=== PATIENT | male | born 1980 | race Caucasian/White ===

== ENCOUNTER 2024-02-20 05:29 | Emergency (ER) | payer OTHER, SELFPAY ==
[2024-02-20] VITALS (10 sets, daily range): BP systolic 150–157; BP diastolic 87–102; PULSE 54–61; RESP 16–24; TEMP 36.1; O2SAT 93–100; BMI 39.4
--- NOTE | 2024-02-20 06:06 | ED_ITS ---
HPI - Abdominal Pain General Time Seen by Provider: 06:06 <Veronica Tobin MD - Last Filed: 02/20/24 07:21> Date Seen: 02/20/24 <Veronica Tobin MD - Last Filed: 02/20/24 07:21> Chief Complaint: Abdominal Pain <Veronica Tobin MD - Last Filed: 02/20/24 07:21> Stated Complaint: Abdominal pain, sweating, nausea <Veronica Tobin MD - Last Filed: 02/20/24 07:21> Time Seen by Provider: 02/20/24 06:06 <Veronica Tobin MD - Last Filed: 02/20/24 07:21> Source: patient and RN notes reviewed <Veronica Tobin MD - Last Filed: 02/20/24 07:21> Mode of arrival: ambulatory <Veronica Tobin MD - Last Filed: 02/20/24 07:21> Limitations: no limitations <Veronica Tobin MD - Last Filed: 02/20/24 07:21> History of Present Illness HPI narrative: Dario is a very pleasant 43-year-old gentleman previously healthy who comes to the emergency room for evaluation regarding abdominal pain. Patient noted to have the onset of abdominal pain left lower quadrant at 0300 hours which awoke him from sleep. He did not have any neck symptoms last night when he went to bed. This is associated with some soft stools but no blood or diarrhea. He has not had fever but he has the had significant diaphoresis. He has not experienced this in the past. He has no painful urination. He is nauseated but has not had any vomiting. No position changes improve his discomfort. He has not taken anything for pain at this point. <Veronica Tobin MD - Last Filed: 02/20/24 07:21> Related Data Home Medications: Home Medications ?Medication ?Instructions ?Recorded ?Confirmed albuterol 90 mcg/actuation aerosol mcg inhalation 02/20/24 inhaler brimonidine ophthalmic (eye) 02/20/24 bupropion HCl 150 mg tablet,12 hr 150 mg PO DAILY 02/20/24 02/20/24 sustained-release (Wellbutrin SR) dorzolamide ophthalmic (eye) 02/20/24 dorzolamide-timolol ophthalmic (eye) 02/20/24 fluoxetine 20 mg capsule 20 mg PO DAILY 02/20/24 02/20/24 metformin 500 mg tablet,extended 500 mg PO DAILY 02/20/24 02/20/24 release 24 hr metoprolol succinate 25 mg 25 mg PO DAILY 02/20/24 02/20/24 tablet,extended release 24 hr (Toprol XL) Previous Rx's ?Medication ?Instructions ?Recorded oxycodone-acetaminophen 5 mg-325 1 tab PO Q4-6H PRN pain #10 tabs 02/20/24 mg tablet (Percocet) tamsulosin 0.4 mg capsule (Flomax) 0.4 mg PO DAILY #10 caps 02/20/24 <Veronica Tobin MD - Last Filed: 02/20/24 07:21> Allergies/Adverse Reactions: Allergies Allergy/AdvReac Type Severity Reaction Status Date / Time Penicillins Allergy Unknown Verified 02/20/24 05:48 <Veronica Tobin MD - Last Filed: 02/20/24 07:21> Review of Systems Status of ROS Reports: 10 or more systems reviewed and unremarkable except as noted in History and below <Veronica Tobin MD - Last Filed: 02/20/24 07:21> Narrative No recent illnesses <Veronica Tobin MD - Last Filed: 02/20/24 07:21> Const Denies: fever or chills <Veronica Tobin MD - Last Filed: 02/20/24 07:21> ENMT Denies: nasal discharge or nasal congestion <Veronica Tobin MD - Last Filed: 02/20/24 07:21> Cardio Denies: chest pain, palpitations, swelling of feet/ankles or shortness of breath with exertion <Veronica Tobin MD - Last Filed: 02/20/24 07:21> Resp Denies: shortness of breath or cough <Veronica Tobin MD - Last Filed: 02/20/24 07:21> GI Reports: abdominal pain and nausea; Denies: vomiting, diarrhea, constipation or blood in stool <Veronica Tobin MD - Last Filed: 02/20/24 07:21> Denies: painful urination or urinary frequency <Veronica Tobin MD - Last Filed: 02/20/24 07:21> [facility] Medical History: Medical History Chronic uveitis of right eye ?H20.11 - Chronic iridocyclitis, right eye (ICD-10) Obesity ?E66.9 - Obesity, unspecified (ICD-10) Depression ?F32.A - Depression, unspecified (ICD-10) Asthma ?J45.909 - Unspecified asthma, uncomplicated (ICD-10) <Veronica Tobin MD - Last Filed: 02/20/24 07:21> Surgical History: Surgical History Status post cataract extraction and insertion of intraocular lens of right eye ?Z98.41 - Cataract extraction status, right eye (ICD-10) ?Z96.1 - Presence of intraocular lens (ICD-10) <Veronica Tobin MD - Last Filed: 02/20/24 07:21> Social History: Social History Smoking Status: Never smoker Do you use any of these nicotine containing products: None Second hand tobacco smoke exposure: No How often do you have a drink containing alcohol: monthly or less AUDIT-C Alcohol total score: 1 Non-prescribed substance use: denies use service: No <Veronica Tobin MD - Last Filed: 02/20/24 07:21> Exam Narrative: Exam Narrative: Dario is alert and oriented. He is diaphoretic. External ears eyes nose clear. Heart with regular rate and rhythm and lungs are clear bilaterally. Abdomen is with tenderness left lower quadrant left mid abdomen. No rebound tenderness. Bowel sounds are present. Lower extremities with symmetrical pedal pulses and no evidence of edema. Moving all extremities. <Veronica Tobin MD - Last Filed: 02/20/24 07:21> Const: Vital Signs, click to edit/add: Vital Signs - 24 hr 02/20/24 05:44 02/20/24 06:48 02/20/24 06:49 Temperature Pulse Rate 54 L 57 L Pulse Rate [Left P ulse Oximeter] 59 L Respiratory Rate 24 Blood Pressure 150/87 H Blood Pressure [Ri ght Upper Arm] 154/102 H Pulse Oximetry 100 98 97 Oxygen Delivery Me thod Room Air 02/20/24 07:00 02/20/24 07:19 02/20/24 07:20 Temperature 96.9 F L Pulse Rate 58 L 61 Pulse Rate [Left P ulse Oximeter] 58 L Respiratory Rate 16 Blood Pressure 157/100 H Blood Pressure [Ri ght Upper Arm] 157/100 H Pulse Oximetry 96 97 97 Oxygen Delivery Me thod Room Air 02/20/24 07:30 02/20/24 07:32 Temperature Pulse Rate 55 L 56 L Pulse Rate [Left P ulse Oximeter] Respiratory Rate Blood Pressure 152/94 H Blood Pressure [Ri ght Upper Arm] Pulse Oximetry 94 93 Oxygen Delivery Me thod <Veronica Tobin MD - Last Filed: 02/20/24 07:21> Vital Signs, click to edit/add: Vital Signs - 24 hr 02/20/24 05:44 02/20/24 06:48 02/20/24 06:49 Temperature Pulse Rate 54 L 57 L Pulse Rate [Left P ulse Oximeter] 59 L Respiratory Rate 24 Blood Pressure 150/87 H Blood Pressure [Ri ght Upper Arm] 154/102 H Pulse Oximetry 100 98 97 Oxygen Delivery Me thod Room Air 02/20/24 07:00 02/20/24 07:19 02/20/24 07:20 Temperature 96.9 F L Pulse Rate 58 L 61 Pulse Rate [Left P ulse Oximeter] 58 L Respiratory Rate 16 Blood Pressure 157/100 H Blood Pressure [Ri ght Upper Arm] 157/100 H Pulse Oximetry 96 97 97 Oxygen Delivery Me thod Room Air 02/20/24 07:30 02/20/24 07:32 Temperature Pulse Rate 55 L 56 L Pulse Rate [Left P ulse Oximeter] Respiratory Rate Blood Pressure 152/94 H Blood Pressure [Ri ght Upper Arm] Pulse Oximetry 94 93 Oxygen Delivery Me thod <Saad Barrett MD - Last Filed: 02/20/24 07:59> Documenting provider has reviewed patient's vital signs: yes <Veronica Tobin MD - Last Filed: 02/20/24 07:21> Course Course ED Course: Differential diagnosis includes but is not limited to diverticulitis, ureteral colic, pyelonephritis, colitis, gastroenteritis. IV will be placed and morphine 4 mg, Zofran 4 mg given. Plan on abdominal CT. Labs to include CBC, comprehensive panel, lactate, lipase and urinalysis. Patient and his in agreement with our plan. <Veronica Tobin MD - Last Filed: 02/20/24 07:21> Reevaluation(s) Reevaluation #1: Patient noted to have increasing pain and thus also given dose of Dilaudid 0.5 mg IV. Urinalysis with 3+ blood in thus did order noncontrast CT of the abdomen. This case is signed out to my colleague Dr. Barrett for review of CT and laboratory values. <Veronica Tobin MD - Last Filed: 02/20/24 07:21> Reevaluation #2: Patient was updated on imaging results: IMPRESSION: Left-sided obstructive uropathy due to a 3 millimeter calcified calculus at the inter orifice of the left ureterovesical junction. Small intrarenal calculus on the left. No intrarenal calculi on the right. He was given additional 0.9 normal saline bolus, 15 mg IV Toradol, 0.4 mg Flomax capsule, urinalysis unremarkable, labs otherwise reassuring, based on location patient likely passed a kidney stone. <Saad Barrett MD - Last Filed: 02/20/24 07:59> Time of Reevaluation #3: 07:59 <Saad Barrett MD - Last Filed: 02/20/24 07:59> Reevaluation #3: Patient's pain has been controlled, will plan to discharge with a strainer, short prescription for Flomax 0.4 mg daily until the stone is passed, 400-600 mg Motrin every 4-6 hours with food as needed for pain, for breakthrough pain Percocet 5-325 mg tablet every 4-6 hours, patient should follow-up with a primary care provider over the next 7-10 days. Return precautions given. <Saad Barrett MD - Last Filed: 02/20/24 07:59> Vital Signs Vital signs: Initial Vital Signs Pulse Rate 59 L 02/20/24 05:44 Respiratory Rate 24 02/20/24 05:44 Blood Pressure 154/102 H 02/20/24 05:44 Blood Pressure Mean 119 H 02/20/24 05:44 Blood Pressure Position Sitting 02/20/24 05:44 Pulse Oximetry 100 02/20/24 05:44 Oxygen Delivery Method Room Air 02/20/24 05:44 Vital Signs Pulse Rate 59 L 02/20/24 05:44 Respiratory Rate 24 02/20/24 05:44 Blood Pressure 154/102 H 02/20/24 05:44 Pulse Oximetry 100 02/20/24 05:44 Oxygen Delivery Method Room Air 02/20/24 05:44 Temperature 96.9 F L 02/20/24 07:19 Pulse Rate 56 L 02/20/24 07:32 Respiratory Rate 16 02/20/24 07:19 Blood Pressure 152/94 H 02/20/24 07:32 Pulse Oximetry 93 02/20/24 07:32 Oxygen Delivery Method Room Air 02/20/24 07:19 <Veronica Tobin MD - Last Filed: 02/20/24 07:21> Initial Vital Signs Pulse Rate 59 L 02/20/24 05:44 Respiratory Rate 24 02/20/24 05:44 Blood Pressure 154/102 H 02/20/24 05:44 Blood Pressure Mean 119 H 02/20/24 05:44 Blood Pressure Position Sitting 02/20/24 05:44 Pulse Oximetry 100 02/20/24 05:44 Oxygen Delivery Method Room Air 02/20/24 05:44 Vital Signs Pulse Rate 59 L 02/20/24 05:44 Respiratory Rate 24 02/20/24 05:44 Blood Pressure 154/102 H 02/20/24 05:44 Pulse Oximetry 100 02/20/24 05:44 Oxygen Delivery Method Room Air 02/20/24 05:44 Temperature 96.9 F L 02/20/24 07:19 Pulse Rate 56 L 02/20/24 07:32 Respiratory Rate 16 02/20/24 07:19 Blood Pressure 152/94 H 02/20/24 07:32 Pulse Oximetry 93 02/20/24 07:32 Oxygen Delivery Method Room Air 02/20/24 07:19 <Saad Barrett MD - Last Filed: 02/20/24 07:59> Medications Administered Medications: Generic Name Dose Route Start Last Admin Trade Name Freq PRN Reason Stop Dose Admin Sodium Chloride 1,000 mls @ 1,000 mls/hr 02/20/24 07:20 02/20/24 07:43 0.9 % Sodium Chloride 1000 Ml IV 02/20/24 08:19 1,000 mls/hr .Q1H NUBIA Administration Discontinued Medications Generic Name Dose Route Start Last Admin Trade Name Freq PRN Reason Stop Dose Admin Hydromorphone HCl 0.5 mg 02/20/24 07:06 02/20/24 07:15 Hydromorphone 0.5 Mg/0.5 Ml Inj IVP 02/20/24 07:07 0.5 mg ONCE ONE Administration Ketorolac Tromethamine 15 mg 02/20/24 07:20 02/20/24 07:43 Ketorolac 15 Mg/Ml Inj IVP 02/20/24 07:21 15 mg ONCE ONE Administration Morphine Sulfate 4 mg 02/20/24 06:16 02/20/24 06:43 Morphine 4 Mg/Ml Inj IVP 02/20/24 06:17 4 mg ONCE ONE Administration Ondansetron HCl 4 mg 02/20/24 06:16 02/20/24 06:43 Ondansetron 2 Mg/Ml Inj IVP 02/20/24 06:17 4 mg ONCE ONE Administration Tamsulosin HCl 0.4 mg 02/20/24 07:16 02/20/24 07:44 Tamsulosin Hcl 0.4 Mg Capsule PO 02/20/24 07:17 0.4 mg DAILY STA Administration <Veronica Tobin MD - Last Filed: 02/20/24 07:21> Generic Name Dose Route Start Last Admin Trade Name Freq PRN Reason Stop Dose Admin Sodium Chloride 1,000 mls @ 1,000 mls/hr 02/20/24 07:20 02/20/24 07:43 0.9 % Sodium Chloride 1000 Ml IV 02/20/24 08:19 1,000 mls/hr .Q1H NUBIA Administration Discontinued Medications Generic Name Dose Route Start Last Admin Trade Name Freq PRN Reason Stop Dose Admin Hydromorphone HCl 0.5 mg 02/20/24 07:06 02/20/24 07:15 Hydromorphone 0.5 Mg/0.5 Ml Inj IVP 02/20/24 07:07 0.5 mg ONCE ONE Administration Ketorolac Tromethamine 15 mg 02/20/24 07:20 02/20/24 07:43 Ketorolac 15 Mg/Ml Inj IVP 02/20/24 07:21 15 mg ONCE ONE Administration Morphine Sulfate 4 mg 02/20/24 06:16 02/20/24 06:43 Morphine 4 Mg/Ml Inj IVP 02/20/24 06:17 4 mg ONCE ONE Administration Ondansetron HCl 4 mg 02/20/24 06:16 02/20/24 06:43 Ondansetron 2 Mg/Ml Inj IVP 02/20/24 06:17 4 mg ONCE ONE Administration Tamsulosin HCl 0.4 mg 02/20/24 07:16 02/20/24 07:44 Tamsulosin Hcl 0.4 Mg Capsule PO 02/20/24 07:17 0.4 mg DAILY STA Administration <Saad Barrett MD - Last Filed: 02/20/24 07:59> MDM - Abdominal Pain Lab Data Attestation: I reviewed the patient's lab results. <Veronica Tobin MD - Last Filed: 02/20/24 07:21> Labs: Lab Results 02/20/24 02/20/24 Range/Units 06:21 07:00 WBC 11.12 H (4.50-11.00) K/uL RBC 4.64 (4.30-5.90) m/uL Hgb 14.6 (13.5-17.5) gm/dL Hct 43.5 (37.0-53.0) % MCV 94 (80-100) fL MCH 32 (26-34) pg MCHC 34 (32-36) gm/dL RDW Coeff of Trina 12.2 (11.5-15.5) % Plt Count 254 (140-440) K/uL Neut % (Auto) 87.6 H (42.0-72.0) % Lymph % (Auto) 8.1 L (20-44) % Dougherty % (Auto) 3.7 (0.0-11.0) % Eos % (Auto) 0.3 (0.0-7.0) % Baso % (Auto) 0.1 (0.0-3.0) % Neut # (Auto) 9.70 H (1.7-7.0) K/uL Lymph # (Auto) 0.90 (0.90-2.90) K/uL Dougherty # (Auto) 0.40 (0.00-0.90) K/UL Eos # (Auto) 0.00 (0.00-0.50) K/uL Baso # (Auto) 0.00 (0.00-0.30) K/uL Abs Immat Gran (auto) 0.00 (0.00-0.30) K/uL Imm/Tot Granulo (auto) 0.2 % Sodium 137 (135-149) mmol/L Potassium 4.2 (3.6-5.1) mmol/L Chloride 107 (96-114) mmol/L Carbon Dioxide 19 L (20-32) mmol/L Anion Gap 11 (7-15) mEq/L BUN 19 (5-24) mg/dL Creatinine 0.9 (0.5-1.5) mg/dL Estimated Creat Clear 140.26 Estimated GFR 109 ml/min Glucose 156 H (60-115) mg/dL Lactate 1.9 (0.5-1.9) mmol/L Calcium 9.2 (8.4-10.6) mg/dL Total Bilirubin 0.6 (0.1-1.5) mg/dL AST 38 H (12-35) U/L ALT 42 (4-50) U/L Alkaline Phosphatase 71 (40-150) U/L Total Protein 7.3 (6.0-8.3) g/dL Albumin 4.6 (3.3-5.0) g/dL Lipase 51 (23-300) U/L Urine Color Yellow (Yellow) Urine Appearance Clear (Clear) Urine pH 5.5 (5.0-8.5) Ur Specific [place] >= 1.030 (1.000-1.030) Urine Protein 1+ A (Negative) Urine Glucose (UA) Negative (Negative) Urine Ketones Negative (Negative) Urine Blood 3+ A (Negative) Urine Nitrite Negative (Negative) Urine Bilirubin Negative (Negative) Urine Urobilinogen 0.2 (0.2-1.0) Ur Leukocyte Esterase Negative (Negative) Urine RBC 25-50 A (0-2) Urine WBC 0-2 (0-5) Ur Squamous Epith Cells Few (None-Few) Urine Bacteria Few A (None) <Veronica Tobin MD - Last Filed: 02/20/24 07:21> Lab Results 02/20/24 02/20/24 Range/Units 06:21 07:00 WBC 11.12 H (4.50-11.00) K/uL RBC 4.64 (4.30-5.90) m/uL Hgb 14.6 (13.5-17.5) gm/dL Hct 43.5 (37.0-53.0) % MCV 94 (80-100) fL MCH 32 (26-34) pg MCHC 34 (32-36) gm/dL RDW Coeff of Trina 12.2 (11.5-15.5) % Plt Count 254 (140-440) K/uL Neut % (Auto) 87.6 H (42.0-72.0) % Lymph % (Auto) 8.1 L (20-44) % Dougherty % (Auto) 3.7 (0.0-11.0) % Eos % (Auto) 0.3 (0.0-7.0) % Baso % (Auto) 0.1 (0.0-3.0) % Neut # (Auto) 9.70 H (1.7-7.0) K/uL Lymph # (Auto) 0.90 (0.90-2.90) K/uL Dougherty # (Auto) 0.40 (0.00-0.90) K/UL Eos # (Auto) 0.00 (0.00-0.50) K/uL Baso # (Auto) 0.00 (0.00-0.30) K/uL Abs Immat Gran (auto) 0.00 (0.00-0.30) K/uL Imm/Tot Granulo (auto) 0.2 % Sodium 137 (135-149) mmol/L Potassium 4.2 (3.6-5.1) mmol/L Chloride 107 (96-114) mmol/L Carbon Dioxide 19 L (20-32) mmol/L Anion Gap 11 (7-15) mEq/L BUN 19 (5-24) mg/dL Creatinine 0.9 (0.5-1.5) mg/dL Estimated Creat Clear 140.26 Estimated GFR 109 ml/min Glucose 156 H (60-115) mg/dL Lactate 1.9 (0.5-1.9) mmol/L Calcium 9.2 (8.4-10.6) mg/dL Total Bilirubin 0.6 (0.1-1.5) mg/dL AST 38 H (12-35) U/L ALT 42 (4-50) U/L Alkaline Phosphatase 71 (40-150) U/L Total Protein 7.3 (6.0-8.3) g/dL Albumin 4.6 (3.3-5.0) g/dL Lipase 51 (23-300) U/L Urine Color Yellow (Yellow) Urine Appearance Clear (Clear) Urine pH 5.5 (5.0-8.5) Ur Specific [place] >= 1.030 (1.000-1.030) Urine Protein 1+ A (Negative) Urine Glucose (UA) Negative (Negative) Urine Ketones Negative (Negative) Urine Blood 3+ A (Negative) Urine Nitrite Negative (Negative) Urine Bilirubin Negative (Negative) Urine Urobilinogen 0.2 (0.2-1.0) Ur Leukocyte Esterase Negative (Negative) Urine RBC 25-50 A (0-2) Urine WBC 0-2 (0-5) Ur Squamous Epith Cells Few (None-Few) Urine Bacteria Few A (None) <Saad Barrett MD - Last Filed: 02/20/24 07:59> Imaging Data CT scan - abdomen: Attestation: I have reviewed the pertinent imaging results. <Veronica Tobin MD - Last Filed: 02/20/24 07:21> Discharge Plan Discharge Clinical Impression: Urolithiasis Qualifiers: Urinary calculus location: ureter Qualified Code(s): N20.1 - Calculus of ureter <Veronica Tobin MD - Last Filed: 02/20/24 07:21> Patient Disposition: Home w/ Parent or Adult <Veronica Tobin MD - Last Filed: 02/20/24 07:21> Condition: Improved <Veronica Tobin MD - Last Filed: 02/20/24 07:21> Instructions: Kidney Stones (ED), Renal Colic (ED) <Veronica Tobin MD - Last Filed: 02/20/24 07:21> Additional Instructions: To take Flomax 0.4 mg daily until stone has passed, continue with Motrin 400-600 mg with food every 4-6 hours, add Percocet 5-325 mg tablet every 4-6 hours for breakthrough pain, follow-up with primary care provider here as needed over the next 7-10 days. Return if worsening symptoms. <Veronica Tobin MD - Last Filed: 02/20/24 07:21> Activity Level: No Restrictions <Veronica Tobin MD - Last Filed: 02/20/24 07:21> No Restrictions <Saad Barrett MD - Last Filed: 02/20/24 07:59> Discharge Diet: Regular <Veronica Tobin MD - Last Filed: 02/20/24 07:21> Regular <Saad Barrett MD - Last Filed: 02/20/24 07:59> Prescriptions: New oxycodone-acetaminophen [Percocet] 5-325 mg tablet 1 tab PO Q4-6H PRN (Reason: pain) Qty: 10 0RF tamsulosin [Flomax] 0.4 mg capsule 0.4 mg PO DAILY Qty: 10 0RF No Action albuterol 90 mcg/actuation aerosol inhalation bupropion HCl [Wellbutrin SR] 150 mg tablet sustained-release 12 hr 150 mg PO DAILY fluoxetine 20 mg capsule 20 mg PO DAILY metformin 500 mg tablet extended release 24 hr 500 mg PO DAILY metoprolol succinate [Toprol XL] 25 mg tablet extended release 24 hr 25 mg PO DAILY brimonidine [Alphagan] ophthalmic (eye) dorzolamide [Trusopt] ophthalmic (eye) dorzolamide-timolol [Cosopt] ophthalmic (eye) <Veronica Tobin MD - Last Filed: 02/20/24 07:21> Follow Up/Referrals: Provider,Not a Local [Primary Care Provider] - <Veronica Tobin MD - Last Filed: 02/20/24 07:21> Stand Alone Forms: MyHealth Info Instructions <Veronica Tobin MD - Last Filed: 02/20/24 07:21>
[2024-02-20 06:41] LABS: Appearance Urine Clear (Clear); Bilirubin Urine Negative (Negative); Blood Urine 3+ (Negative); Color Urine Yellow (Yellow); Glucose Urine Negative (Negative); Ketones Urine Negative (Negative); Leukocyte Esterase Urine Negative (Negative); Nitrite Urine Negative (Negative); Protein Urine 1+ (Negative); Specific Gravity Urine >= 1.030 (1.000-1.030); Urobilinogen Urine 0.2 (0.2-1.0); pH Urine 5.5 (5.0-8.5)
[2024-02-20] MEDS: MORPHINE 4 MG/ML INJ IVP (06:43)
[2024-02-20] MEDS: ONDANSETRON 2 MG/ML inj 4 MG IVP (06:43)
--- NOTE | 2024-02-20 06:54 | CRLHL7_ITS ---
For Patients: As a result of the Century Cures Act, medical imaging exams and procedure reports are released immediately into your electronic medical record. You may view this report before your referring provider. If you have questions, please contact your health care provider. INDICATION: Left-sided abdominal pain COMPARISON: None TECHNIQUE: CT examination of the abdomen and pelvis was performed without intravenous contrast. Thin section axial images were obtained from the lung bases through the pubic symphysis. Oral contrast was not administered. Please note that all CT scans at this facility use dose modulation, iterative reconstruction, and/or weight-based dosing when appropriate to reduce radiation dose to as low as reasonably achievable. FINDINGS: LUNG BASES: Minimal bibasilar atelectasis.The heart size is normal at the lung bases. LIVER/BILIARY SYSTEM:The liver is normal in size and configuration given the lack of intravenous contrast. There is no visible focal mass and there is no intra- or extra hepatic biliary ductal dilatation.The gall bladder appears normal. ADRENALS: Normal non-contrast appearance KIDNEYS, URETERS and BLADDER:No intrarenal calculi on the right. Small left lower pole intrarenal calculus measuring 2.5 millimeters. There is left-sided hydronephrosis and hydroureter due to a 3 millimeter calculus at the inner orifice of the left ureterovesical junction. The bladder appears normal. SPLEEN:Incidental granulomas calcifications PANCREAS: Normal non-contrast appearance. RETROPERITONEUM and MESENTERY: There is no mass, adenopathy or aortic aneurysm. GASTROINTESTINAL SYSTEM: There is no evidence of diverticulitis, colitis, mechanical obstruction, or appendicitis. The small bowel as visualized appears normal. PELVIS: No mass, adenopathy or free fluid. OSSEOUS STRUCTURES and ABDOMINAL WALL: There is an age-appropriate appearance of the osseous structures.No significant abdominal wall defect. OTHER: No free fluid or free air. IMPRESSION: Left-sided obstructive uropathy due to a 3 millimeter calcified calculus at the inter orifice of the left ureterovesical junction. Small intrarenal calculus on the left. No intrarenal calculi on the right. Please note that all CT scans at this facility use dose modulation, iterative reconstruction, and/or weight-based dosing when appropriate to reduce radiation dose to as low as reasonably achievable. Dictated by Juan Buchanan MD @ 02/20/2024 7:10:04 AM (Electronically Signed)
[2024-02-20 07:06] LABS: Lactate* 1.9 mmol/L (0.5-1.9)
[2024-02-20 07:07] LABS: Basophils Percent Auto 0.1 % (0.0-3.0); Eosinophils Percent Auto 0.3 % (0.0-7.0); Hematocrit 43.5 % (37.0-53.0); Hemoglobin* 14.6 gm/dL (13.5-17.5); Immature Granulocytes Pct Auto 0.2 %; Lymphocytes Percent Auto 8.1 % (20-44); Mean Corpuscular HGB Conc 34 gm/dL (32-36); Mean Corpuscular Hemoglobin 32 pg (26-34); Mean Corpuscular Volume 94 fL (80-100); Monocytes Percent Auto 3.7 % (0.0-11.0); Neutrophils Percent Auto 87.6 % (42.0-72.0); Platelet Count* 254 K/uL (140-440); RDW Coefficient of Variation % 12.2 % (11.5-15.5); Red Blood Count 4.64 m/uL (4.30-5.90); White Blood Count* 11.12 K/uL (4.50-11.00)
[2024-02-20 07:12] LABS: RBC Urine 25-50 (0-2); WBC Urine 0-2 (0-5)
[2024-02-20 07:13] LABS: Bacteria Urine Few; Squamous Epithelial Cell Urine Few (None-Few)
[2024-02-20] MEDS: HYDROmorphone 0.5 mg/0.5 ml inj IVP (07:15)
[2024-02-20 07:18] LABS: Slide Review Reflex No
[2024-02-20 07:32] LABS: Albumin* 4.6 g/dL (3.3-5.0); Chloride* 107 mmol/L (96-114); Potassium* 4.2 mmol/L (3.6-5.1); Sodium* 137 mmol/L (135-149)
[2024-02-20 07:34] LABS: Anion Gap 11 mEq/L (7-15); Bilirubin Total* 0.6 mg/dL (0.1-1.5); Carbon Dioxide* 19 mmol/L (20-32); Creatinine* 0.9 mg/dL (0.5-1.5); Est. Creatinine Clearance* 140.26; Estimated Glomerular Filt Rate 109 ml/min
[2024-02-20 07:35] LABS: Alanine Aminotransferase* 42 U/L (4-50); Alkaline Phosphatase* 71 U/L (40-150); Aspartate Amino Transferase* 38 U/L (12-35); Blood Urea Nitrogen* 19 mg/dL (5-24); Calcium* 9.2 mg/dL (8.4-10.6); Glucose* 156 mg/dL (60-115); Lipase* 51 U/L (23-300); Total Protein* 7.3 g/dL (6.0-8.3)
[2024-02-20] MEDS: KETOROLAC 15 MG/ML inj IVP (07:43)
[2024-02-20] MEDS: 0.9 % SODIUM CHLORIDE 1000 ml 1,000 ML IV (07:43)
[2024-02-20] MEDS: TAMSULOSIN HCL 0.4 MG CAPSULE PO (07:44)
== END 2024-02-20 08:12 | disposition home or self-care (01) ==
PROVIDERS: Emergency Provider Family Medicine
DX: N20.1 Calculus of ureter (principal)
CPT/HCPCS: 36415; 74176; 80053; 81001; 83605; 83690; 85025; 87086; 96374; 96375; 99284; A9270; J1171; J1885; J2270; J2405; J7030